=== PATIENT | female | born 1975 | race Two or more races ===

== ENCOUNTER 2024-06-20 06:45 | Day surgery (SDC) | payer BC ==
[~2024-06-20] VITALS: Ht 162.6 cm; Wt 68.0 kg
[~2024-06-20 06:45] MED LIST: ALBUAER3 IN; CETI10CA PO; CHOL500021 OR; OMEP-434 PO
[2024-06-20] MEDS ORDERED: BUPIVACAINE 0.25% INJ 50ML VIAL ONE (06:55)
[2024-06-20] MEDS ORDERED: MORPHINE SULFATE 4 MG/ML SYR/VIAL IV PRN (07:00)
[2024-06-20] MEDS ORDERED: MORPHINE SULFATE INJ 2 MG/ml SYRG IV PRN (07:00)
[2024-06-20] MEDS ORDERED: HYDROmorphone HCL 2 MG/ML VL/or syr IV PRN (07:00)
[2024-06-20] MEDS ORDERED: LIDOCAINE HCL 2% TOP JELLY 5ML TOP ONE (07:06)
[2024-06-20] MEDS ORDERED: fentaNYL CITRATE 100 MCG/2 ML VL ONE (07:06)
[2024-06-20] MEDS ORDERED: KETAMINE 50mg/ML 1ml syringe ONE (07:06)
[2024-06-20] MEDS ORDERED: MIDAZOLAM HCL 2MG/2ML 2ml VIAL (1mg/ml) ONE (07:06)
[2024-06-20] MEDS ORDERED: LIDOCAINE 1% INJ PF 5ML AMP ONE (07:06)
[2024-06-20] MEDS ORDERED: PROPOFOL 10 MG/ML 20 ML IV ONE (07:07)
[2024-06-20] MEDS ORDERED: ONDANSETRON HCL 4 MG/2 ML VIAL ONE ×2 (07:07→10:18)
[2024-06-20] MEDS ORDERED: SODIUM CHLORIDE LOCK 10 ML ONE (07:07)
[2024-06-20] MEDS: ceFAZolin 2 GM/D5W100ml 100 ML IV ONE (07:24)
[2024-06-20] MEDS ORDERED: META-24 PO (07:27)
[2024-06-20] MEDS ORDERED: IBUP-1454 PO (07:28)
[2024-06-20] MEDS ORDERED: HYDROmorphone HCL 2 MG/ML VL/or syr ONE (07:39)
[2024-06-20] MEDS: BUPIVACAINE HCL 50 ML ONE (08:07)
[2024-06-20 08:41] VITALS: PULSE 91; RESP 11; O2SAT 96
[2024-06-20] MEDS: KETOROLAC TROMETH 30 MG/ML 1ML VIAL IV ONE (08:53)
[2024-06-20] MEDS: HYDROmorphone HCL 2 MG/ML VL/or syr IV PRN (09:07)
[2024-06-20] MEDS: METOCLOPRAMIDE HCL 5MG/ml INJ 2ml VIAL IV ONE (09:52)
[2024-06-20] MEDS: ONDANSETRON HCL 4 MG/2 ML VIAL IV ONE (10:21)
[2024-06-20] MEDS: ACETAMINOPHEN IV 1000 MG/100ML (10MG/ML) IV ONE (10:23)
[2024-06-20] MEDS ORDERED: ACETAMINOPHEN IV 100 ML IV ONE (10:26)
[2024-06-20 12:15] VITALS: BP 112/43; PULSE 96; RESP 13; O2SAT 95
--- NOTE | 2024-06-20 13:44 | DVHOP2 ---
Operative Report - 2 Report Details Date: 06/20/24 Preop Diagnosis: Right knee arthrofibrosis, chondromalacia, prominent hardware Postop Diagnosis: Right knee arthrofibrosis, chondromalacia, prominent hardware Surgeon: Amna Souza MD Poultry Slaughterer: CESAR Emmanuel Anesthesiologist: Dr Lewis Anesthesia: General Implant: None Consent: The patient was informed of the risks and benefits of the procedure. These include but are not limited to complications of anesthesia, postoperative infection, incomplete relief of symptoms, recurrence of symptoms, damage to blood vessels, nerves and tendons, deep venous thrombosis, pulmonary embolism and possible need for repeat surgery in the future. Complications: None Estimated Blood Loss: Less than 5 mL Indications for Surgery: The patient is a 48-year-old female who presented to the clinic with a history of knee pain status post ACL reconstruction and limitation in range of motion. She also had point tenderness over the tibial incision with some swelling. Nonoperative and operative management options were discussed. Surgery in the form of knee arthroscopy, chondroplasty, microfracture, manipulation under anesthesia, excision of scar tissue, lysis of adhesions, possible meniscus repair versus meniscectomy, and removal of prominent hardware only on the tibial side was discussed. Benefits, risks and treatment alternatives were discussed. She had failed thorough nonoperative management. She wanted to proceed with surgery Name of Procedure Performed Right knee arthroscopy, lysis of adhesions, excision was scar tissue, manipulation under anesthesia, chondroplasty, microfracture of the lateral femoral condyle, removal of deep implant from the tibial side Procedure Details Procedure Details: The patient was identified in the preoperative holding area and the surgical site was marked. The consent was verified. The patient was brought into the operating room and placed supine on the operating table. General anesthesia was administered. A tourniquet was applied over the proximal thigh. All the bony prominences were appropriately padded. The knee was positioned appropriately. The extremity was now prepped and draped in the usual sterile manner. A timeout was called out to confirm the identity of the patient, the nature of surgery, the site of surgery, the availability of implants and x-rays and allergies to medications. A standard anterolateral portal was established. A 30 degree scope was inse rted. A standard anteromedial portal was established, a probe was inserted and the findings are as follows 1. Normal medial and lateral menisci 2. Intact ACL graft, good tension 3. Grade 1-2 chondromalacia medial compartment 4. Grade 3 chondromalacia lateral femoral condyle 5. Grade 2/3 chondromalacia lateral tibial plateau, previous healing of the chondral defect noted. 6. Excessive scar tissue in the intercondylar notch and the suprapatellar pouch The ACL graft was intact. A small cyclops lesion was noted and was removed. Significant scar tissue in the intercondylar notch and the anterior portion of the knee was noted and that was removed as well with the help of a shaver. The lateral femoral condyle had a large defect. The previous tibial cartilage defect had healed satisfactorily, although it was likely to be fibro cartilage. I decided to do chondroplasty and microfracture on the lateral femoral condyle defect. A special type of shaver , power pick was used for this. Multiple holes were drilled. Manipulation of the knee was carried out and excellent range of motion from 0-130 degrees was noted. No extension deficit was noted. The menisci were intact. Open portion of the procedure was carried out. A small incision was made over the tibial incision. The skin and the subcutaneous tissue were dissected. The deep fascia was incised. The sheath of the screw was noted to be slightly prominent. This was removed with the help of a rongeur. No sharp edges were noted after the debridement and removal of the deep implant. Irrigation was given and the skin incisions were closed with nylon. Sterile dressing was applied and the knee was placed in a hinged [id number] brace. Condition Good Disposition Home (She may weightbear as tolerated. Range of motion as tolerated. Physical therapy to start with a in a week.) AMNA SOUZA MD Jun 20, 2024 13:44
[2024-06-20] MEDS ORDERED: CEPH500C PO (19:50)
[2024-06-20] MEDS ORDERED: ASPI1TAB20 PO (19:50)
[2024-06-20] MEDS ORDERED: HYDR-4902 PO (19:50)
== END 2024-06-20 12:39 | disposition home or self-care (01) ==
LOC: SUR 06:45
PROVIDERS: ATTEND Orthopaedic Surgery Sports Medicine
DX: M24.661 Ankylosis, right knee (principal); M94.261 Chondromalacia, right knee; S83.511D Sprain of anterior cruciate ligament of right knee, subsequent encounter; T84.84XA Pain due to internal orthopedic prosthetic devices, implants and grafts, initial encounter; L90.5 Scar conditions and fibrosis of skin; K21.9 Gastro-esophageal reflux disease without esophagitis; J44.9 Chronic obstructive pulmonary disease, unspecified; Z79.899 Other long term (current) drug therapy; Z98.891 History of uterine scar from previous surgery; Z98.890 Other specified postprocedural states; X58.XXXA Exposure to other specified factors, initial encounter
CPT/HCPCS: 20680; 29879; J1171; J1885; J2250; J2405; J2704; J2765; J3010; J3490; J0131